=== PATIENT | female | born 1965 | race Caucasian/White ===

== ENCOUNTER 2020-07-26 10:38 | Emergency (ER) | payer BC ==
[~2020-07-26] VITALS: Ht 10.2 cm; Wt 68.0 kg
[~2020-07-26 10:38] MED LIST: BUPROBAN150 MG PO; BUPROPION HCL100 MG PO; CIMETIDINE200 MG PO; CLONAZEPAM0.5 MG PO; CLONIDINE HCL0.1 MG PO; DICYCLOMINE HCL20 MG PO; DOLOPHINE HCL10 MG PO; DOLOPHINE HCL5 MG PO; DURAGESIC1 EAC4 TD; ELIQUIS5 MG PO; FLUOXETINE20 MG/5 ML PO; HYDROCODON-ACE1 EA10 PO; HYDROCODON-ACE1 EAC8 PO; HYDROXYZINE HCL25 MG PO; HYDROXYZINE PAM25 MG PO; HYOSCYAMINE0.125 M2 PO; IBUPROFEN800 MG PO; IRON240 MG PO; KONDREMUL2.5 ML/5 M PO; LEVOTHYROXINE25 MCG PO; LEVOTHYROXINE50 MCG PO; LINZESS145 MCG PO; MELATONIN3 MG PO; METHADONE HCL5 MG PO; METOPROLOL SUCC25 MG PO; MINIPRESS2 MG PO; MULTIVITAMINS1 EAC7 PO; NEURONTIN100 MG PO; NEURONTIN300 MG PO; NORCO 10-325 T1 EACH PO; NORCO 5-325 TA1 EACH PO; NUCYNTA ER100 MG PO; OXYCODONE HCL10 MG; PEPCID20 MG PO; PREMARIN1.25 MG PO; PROZAC20 MG PO; REMERON15 MG PO; ROBAXIN500 MG PO; SENOKOT8.6 MG PO; SEROQUEL XR200 MG PO; SEROQUEL XR400 MG PO; SEROQUEL25 MG PO; SEROQUEL400 MG PO; SIMETHICONE100 ML MISC; SIMETHICONE100 ML PO; SYNTHROID50 MCG PO; TRAZODONE HCL50 MG PO; ULTRAM50 MG PO; VENLAFAXINE H37.5 MG PO; VITAMIN D250000 UNIT PO; VITAMIN D3400 UNIT PO; XIFAXAN550 MG PO; ZESTRIL2.5 MG NG; ZOFRAN ODT4 MG PO; ZOFRAN4 MG PO; ZOLOFT50 MG PO
--- NOTE | 2020-07-26 15:34 | NUR ---
I WAS NOTIFIED OF CODE BLUE IN ED WITH CPR IN PROGRESS. PT WAS BROUGHT HERE BY [facility] FROM PT'S HOME IN [place]. DID NOT HAVE A NAME FOR KPT, CALLED 911 DISPATCH, THEY INFORMED ME OF PT'S NAME, SAMMIE LOPEZ. [place] PD CHIEF FAUSTO INFORMED ME THAT PT'S CLIFF, WAS ON HIS WAY TO [facility]. BEFORE HE ARRIVED, PT WAS PRONOUNCED @ 1045 AM. AND 2 DAUGHTERS ARRIVED I PLACED THEM IN QUIET RM AND INFORMED THEM OF PT'S PASSING. DR HUNTER AND HAI SUPV RN CHRISTINA AND ISIDORO ALSO GAVE SUPPORT AND ANSWERED QUESTIONS FOR THE FAMILY. ALL THE STAFF IS VERY COMPASSIONATE AND CARING-OFFERING THE UTMOST IN PROFESSIONALISM, COMPASSION AND SYMPATHY. FAMILY CHOSE [facility], GAVE THEM TIME TO SPEND WITH . CONTACTED [facility], ASSISTED WITH TRANSFER OF PT AND APPROPRIATELY PAPERWORK. HAD PRAYER AND OFFERED COMFORT TO FAMILY. NOTIFIED FAMILY MINI SHIFTER, HE WAS HERE WELL CARING FOR FAMILY.
== END 2020-07-26 10:45 ==
LOC: ED 10:38 → EDBD 10:40 → ED 10:40
DX: I46.9 Cardiac arrest, cause unspecified (principal)
CPT/HCPCS: 92950; 94799; 99285-25; J0171; J0282